=== PATIENT | female | born 1975 | race Caucasian/White ===

== ENCOUNTER 2017-11-20 21:47 | Emergency (ER) | payer OTHER ==
--- NOTE | 2017-11-20 21:55 | UC ---
Complaint Female HPI - HPI Summary HPI Summary: C/O hematuria with frequency, urgency, started today. H/O UTI's. - History Of Current Complaint Stated Complaint: HEMATURIA Time Seen by Provider: 11/20/17 21:49 Hx Obtained From: Patient Hx Last Menstrual Period: 04/04/13 ?: No Onset/Duration: Sudden Onset, Still Present, Worse Since - since onset Timing: Constant Severity Initially: Mild Severity Currently: Moderate Character: Burning Aggravating Factor(s): Urination Alleviating Factor(s): Nothing Associated Signs And Symptoms: Negative: Fever, Back Pain Related Hx: Similar Episode/Dx as: - UTI - Allergies/Home Medications Allergies/Adverse Reactions: Allergies Allergy/AdvReac Type Severity Reaction Status Date / Time latex Allergy Intermediate Rash Verified 11/20/17 21:52 clindamycin Allergy Rash Verified 11/20/17 22:02 Penicillins Allergy Rash Verified 11/20/17 22:02 Home Medications: Home Medications Cetirizine* [ZyrTEC 10 MG TAB*] 10 mg PO DAILY 11/20/17 [History Confirmed 11/20] Cranberry Fruit Concentrate [Azo Cranberry] 250 mg PO DAILY 11/20/17 [History Confirmed 11/20/17] PMH/Surg Hx/FS Hx/Imm Hx GI/ History: Gastroesophageal Reflux Psychological History: Anxiety, Depression - Surgical History Surgical History: Yes Surgery Procedure, Year, and Place: c-sections x2 - Family History Known Family History: Positive: Cardiac Disease, Hypertension, Diabetes - Social History Occupation: Employed Full-time Lives: With Family Substance Use Type: None Smoking Status (MU): Light Every Day Tobacco Smoker Cessation Counseling: Patient Advised to Stop Review of Systems Genitourinary: Hematuria, Frequency, Urgency Is Patient Immunocompromised?: No All Other Systems Reviewed And Are Negative: Yes Physical Exam Triage Information Reviewed: Yes Appearance: Well-Appearing, No Pain Distress, Well-Nourished Vital Signs Reviewed: Yes Eyes: Positive: Conjunctiva Clear ENT: Positive: Pharynx normal, TMs normal Neck exam: Normal Respiratory Exam: Normal Cardiovascular Exam: Normal Abdomen Description: Negative: Nontender - suprapubic tenderness, CVA Tenderness (R), CVA Tenderness (L), McBurney's Point Tenderness, Peritoneal Signs Musculoskeletal Exam: Normal Neurological Exam: Normal Psychological Exam: Normal Skin Exam: Normal Complaint Female Dx - Differential Dx/Diagnosis Differential Diagnosis/HQI/PQRI: Appendicitis, Ureteral Stone, Urinary Tract Infection Provider Diagnoses: Acute hemorrhagic cystitis Discharge - Sign-Out/Discharge Documenting (check all that apply): Discharge/Admit/Transfer - Discharge Plan Condition: Stable Disposition: HOME Prescriptions: Phenazopyridine 200 mg (NF) [Pyridium 200 MG tab *] 200 mg PO TID PRN #6 tab PRN Reason: UTI symptoms Sulfamethox/Trimethoprim DS* [Bactrim DS 800/160 TAB*] 1 tab PO BID #10 tab Patient Education Materials: Urinary Tract Infection in Women (ED), Phenazopyridine (By mouth), Sulfamethoxazole/Trimethoprim (By mouth) - Billing Disposition and Condition Condition: STABLE Disposition: Home
[2017-11-20 21:59] VITALS: BP 119/80
[2017-11-20] MEDS ORDERED: Sulfamethox/Trimethoprim DS 800/160* TAB PO ONE (22:00)
--- NOTE | 2017-11-24 08:38 | UC ---
- Progress Note Progress Note: urine culture + Ecoli resistance to Bactrim please have the pt. stop Bactrim , will ERx Cipro 500 mg bid x 5 days Discharge - Sign-Out/Discharge Documenting (check all that apply): Discharge/Admit/Transfer - Discharge Plan Condition: Stable Disposition: HOME Prescriptions: Ciprofloxacin TAB* [Cipro 500 MG TAB*] 500 mg PO BID #10 tab Phenazopyridine 200 mg (NF) [Pyridium 200 MG tab *] 200 mg PO TID PRN #6 tab PRN Reason: UTI symptoms Sulfamethox/Trimethoprim DS* [Bactrim DS 800/160 TAB*] 1 tab PO BID #10 tab Patient Education Materials: Sulfamethoxazole/Trimethoprim (By mouth), Phenazopyridine (By mouth), Urinary Tract Infection in Women (ED) Referrals: Janette Moreira MD [Primary Care Provider] - - Billing Disposition and Condition Condition: STABLE Disposition: Home
== END 2017-11-20 22:13 | disposition home or self-care (01) ==
LOC: UCCORT 21:47
DX: N30.01 Acute cystitis with hematuria (principal); Z88.0 Allergy status to penicillin; Z88.1 Allergy status to other antibiotic agents; Z91.040 Latex allergy status; F17.210 Nicotine dependence, cigarettes, uncomplicated
CPT/HCPCS: 87077; 87086; 87186; 99202; A9270-GY; G0463

== ENCOUNTER 2018-04-24 09:37 | Emergency (ER) | payer SELFPAY ==
[2018-04-24 09:54] VITALS: BP 117/83
[2018-04-24] MEDS ORDERED: Tetracaine 0.5% OPTH.SOL 4 ML* 1 DROP BTL ONE (10:20)
[2018-04-24] MEDS ORDERED: Fluorescein Sodium TOPICAL* 1 MG TEST STRIP OPHTHALMIC ONE (10:21)
--- NOTE | 2018-04-24 12:10 | UC ---
Eye Complaint HPI - HPI Summary HPI Summary: Pt presents to with irriation to left eye. Pt does wear contact lenses. Pt states first noted on Sat when out in [place]. Pt states has significant glare from snow. Pt states felt irritation with contact. Pt states she rubbed eye and felt burning pain. Pt states has had some tearing. No drainage or discharge. Pt states today eye is red and seems there is a "film" looking through. Pt with scant yellow discharge this morning. has not put contact in. Pt has foreign body sensation in lower lid. has washed eye without relief. Pt does not have an ophtho pt's medications reviewed this visit - History of Current Complaint Chief Complaint: UCEye Stated Complaint: LT EYE CONCERN Time Seen by Provider: 04/24/18 10:20 Hx Obtained From: Patient Hx Last Menstrual Period: 04/04/13 ?: No Onset/Duration: Gradual Onset Timing: Constant Severity Initially: Mild Pain Intensity: 0 Pain Scale Used: 0-10 Numeric - Allergies/Home Medications Allergies/Adverse Reactions: Allergies Allergy/AdvReac Type Severity Reaction Status Date / Time latex Allergy Intermediate Rash Verified 04/24/18 09:54 clindamycin Allergy Rash Verified 04/24/18 09:54 Penicillins Allergy Rash Verified 04/24/18 09:54 PMH/Surg Hx/FS Hx/Imm Hx Previously Healthy: Yes - Surgical History Surgical History: Yes Surgery Procedure, Year, and Place: c-sections x2, partial hysterectomy from estrogen fed breast cancer - Family History Known Family History: Positive: Cardiac Disease, Hypertension, Diabetes - Social History Occupation: Employed Full-time Lives: With Family Alcohol Use: Rare Substance Use Type: None Smoking Status (MU): Light Every Day Tobacco Smoker Review of Systems All Other Systems Reviewed And Are Negative: Yes Constitutional: Positive: Negative Eyes: Positive: Blurred Vision, Eye Redness, Other - burning Physical Exam - Summary Physical Exam Summary: Vital Signs Reviewed: Yes A+Ox3, no distress Eyes:NEVA. EOM intact and full, left eye injected, scant yellow discharge, no- photophobia, crisp fundoscopic margin, no fluorescene uptake ENT: Hearing grossly normal TM x 2 clear, mmoist, uvula midline, no exudate, no erythema Neck: Positive: Supple Respiratory: Positive: No respiratory distress, No accessory muscle use + CTA throughout no w/r Cardiovascular: RRR nl s1, s2 no m/r CBT <2 sec abd soft + BS nt/nd no guarding, no distension Musculoskeletal Exam: PENA x 4 without difficulty Strength Intact, ROM Intact Neurological: Positive: Alert, + sensation throughout Psychological: Positive: Normal Response To Family Skin: Positive: no rash, no ecchymosis Triage Information Reviewed: Yes Vital Signs: Initial Vital Signs Temp 97.7 F 04/24/18 09:48 Pulse 98 04/24/18 09:48 Resp 14 04/24/18 09:48 BP 117/83 04/24/18 09:48 Pulse Ox 100 04/24/18 09:48 Eye Complaint Course/Dx - Course Course Of Treatment: Pt present with 2 days left eye pain. pt states [place] noted [place] - snow was "bright" Pt states initially had eye pain and photophobia. Pt states then developed scant drainage and f.b sensation. Pt states feels like "film" over eyes. on exam, vss, reviewed visual acuity. Pt with scant yellow discharge. No fluorscene uptake. no fb no photophobia. recommend pt apply eat. do not wear contact lenses. cipro drops. recommend contact ophtho for f./u adn recheck - pt states understanding and agreement - will call today. Referral given. strict return precautions. pt comfortable and in agreement with plan - Differential Dx/Diagnosis Provider Diagnoses: left conjunctivitis Discharge - Sign-Out/Discharge Documenting (check all that apply): Patient Departure All imaging exams completed and their final reports reviewed: No Studies - Discharge Plan Condition: Stable Disposition: HOME Prescriptions: Ofloxacin 0.3% (Eye Drop) [Ocuflox OPTH 0.3% (Eye Drop)] 2 drop LEFT EYE Q6HR # 1 btl Patient Education Materials: Corneal Abrasion (ED) Referrals: Siva Vidalse MD [Medical Doctor] - Brenda Andrews MD [Primary Care Provider] - Kvng SHIN,Traci [Medical Doctor] - Bertin Dailey MD [Medical Doctor] - Additional Instructions: - apply eye drops to affected eye every 6 hours - Okay to alternate ibuprofen (advil, motrin) and tylenol every 3 hour as needed - okay to apply warm, moist soaks to your eye - it is recommended you schedule a follow-up appointment with an obstetrics specialist. contact the doctors provided to schedule a recheck this week - if yo have increased pain, drainage, or any other concerns it is recommended you go to the emergency department for further evaluation and treatment - Billing Disposition and Condition Condition: STABLE Disposition: Home - Attestation Statements Provider Attestation: I was available for consult. This patient was seen by the ROSITA. The patient was not presented to, seen by, or examined by me. -Lexi
== END 2018-04-24 10:55 | disposition home or self-care (01) ==
LOC: UCCORT 09:37
DX: H10.9 Unspecified conjunctivitis (principal); Z88.0 Allergy status to penicillin; Z88.1 Allergy status to other antibiotic agents
CPT/HCPCS: 99212; A9270-GY; G0463

== ENCOUNTER 2018-05-05 15:38 | Emergency (ER) | payer BC, OTHER ==
[2018-05-05 16:21] VITALS: BP 122/77
--- NOTE | 2018-05-05 16:55 | UC ---
UC General HPI - HPI Summary HPI Summary: per cable television line technician "Stomach pain for 2 weeks; pt had stopped Protonix one month ago. Nausea started 3 days ago; diarrhea once 3 eves ago; phlegm type vomiting; fatique. No nausea now. Stomach pain continues. Thoracic-upper lumbar spine pain." -she only had vomiting and diarrhea x 1, 2 days ago. she spent all day in bed sleeping yesterday. she stopped the protonix bc she didnt have insurance which she just got again. gerd sx are minimal -also now w/ sinus pain/mild congestion x 1 day. tends to get sinus infections and wants to check to see if she needs abx. -denies dysuria. no hematuria. no menses. urine is dark but she prado snot been drinking much fluid. - History of Current Complaint Chief Complaint: UCGU Stated Complaint: VOMITING/DIARRHEA Time Seen by Provider: 05/05/18 16:50 Hx Last Menstrual Period: yrs Pain Intensity: 3 - Allergy/Home Medications Allergies/Adverse Reactions: Allergies Allergy/AdvReac Type Severity Reaction Status Date / Time latex Allergy Intermediate Rash Verified 05/05/18 16:09 clindamycin Allergy Rash Verified 05/05/18 16:09 Penicillins Allergy Rash Verified 05/05/18 16:09 ? amoxicillin Allergy Unknown Uncoded 05/05/18 16:09 Reaction Details PMH/Surg Hx/FS Hx/Imm Hx Previously Healthy: Yes - Surgical History Surgical History: Yes Surgery Procedure, Year, and Place: c-sections x 2, partial hysterectomy from estrogen fed breast cancer - Family History Known Family History: Positive: Cardiac Disease, Hypertension, Diabetes - Social History Alcohol Use: Rare Substance Use Type: None Smoking Status (MU): Light Every Day Tobacco Smoker Review of Systems All Other Systems Reviewed And Are Negative: Yes Constitutional: Positive: Negative Skin: Positive: Negative Eyes: Positive: Negative ENT: Positive: Sinus Congestion, Sinus Pain/Tenderness Respiratory: Positive: Negative Cardiovascular: Positive: Negative Gastrointestinal: Positive: Vomiting, Diarrhea Genitourinary: Positive: Negative Motor: Positive: Negative Neurovascular: Positive: Negative Musculoskeletal: Positive: Negative Neurological: Positive: Negative Psychological: Positive: Negative Is Patient Immunocompromised?: No Physical Exam Triage Information Reviewed: Yes Appearance: Well-Appearing, No Pain Distress, Well-Nourished Vital Signs: Initial Vital Signs Temp 98.1 F 05/05/18 16:12 Pulse 89 11/30/18 16:12 Resp 16 05/05/18 16:12 BP 122/77 05/05/18 16:12 Pulse Ox 100 05/05/18 16:12 Vital Signs Reviewed: Yes Eye Exam: Normal ENT: Positive: Pharynx normal, TMs normal. Negative: Nasal congestion, TM bulging, TM dull, TM red, Sinus tenderness Neck exam: Normal Neck: Positive: Supple, Nontender, No Lymphadenopathy Respiratory: Positive: Lungs clear, Normal breath sounds, No respiratory distress, No accessory muscle use. Negative: Crackles, Rhonchi, Stridor, Wheezing Cardiovascular Exam: Normal Cardiovascular: Positive: RRR, No Murmur, Pulses Normal Abdominal Exam: Normal Abdomen Description: Positive: Nontender, Soft Bowel Sounds: Positive: Present Musculoskeletal Exam: Normal Neurological Exam: Normal Psychological Exam: Normal Course/Dx - Course Course Of Treatment: Vomiting, diarrhea and fatigue have resolved. UA shows dehydration and + 2 blood. reecommend she get rechecke din 6 days. increase water to frequent, clear urination. f/u with pcp for gerd as well. - Differential Dx - Multi-Symptom Differential Diagnoses: Urinary Tract Infection, Other - URI, sinus infection, gerd, n/v - Diagnoses Provider Diagnosis: Gastroenteritis Discharge - Sign-Out/Discharge Documenting (check all that apply): Patient Departure All imaging exams completed and their final reports reviewed: No Studies - Discharge Plan Condition: Stable Disposition: HOME Patient Education Materials: Dehydration (ED), Gastroenteritis (ED) Referrals: Brenda Andrews MD [Primary Care Provider] - 6 Days Additional Instructions: -Make sure that you have the urine rechecked for arthur small amount of blood that was seen. drink plenty of water. You will know you are re-hydrated when your urine is clear and frequent. - Billing Disposition and Condition Condition: STABLE Disposition: Home
== END 2018-05-05 17:23 | disposition home or self-care (01) ==
LOC: UCCORT 15:38
DX: K52.9 Noninfective gastroenteritis and colitis, unspecified (principal); Z88.1 Allergy status to other antibiotic agents; F17.210 Nicotine dependence, cigarettes, uncomplicated; Z88.0 Allergy status to penicillin
CPT/HCPCS: 81003; 99211; G0463

== ENCOUNTER 2019-06-10 18:15 | Emergency (ER) | payer BC, OTHER ==
--- OUTSIDE RECORDS SUMMARY | 2019-06-10 18:26 | XMS REPORT | Continuity of Care Document ---
:1975 External Reference #:[id number] Author Name Kelly Lombardi, DECLAN-BC, MEAT WASHER, Ibclc Address [address] [place] [id number] Care Team Providers Name Role Phone Rad Trujillo DO - Hematology & Care Team Information [employer] Oncology Kelly Lombardi PNP-BC MEAT WASHER, Ibclc Care Team Information [employer] [phone] - Family Problems Active Problems Provider Date Malignant neoplasm of female breast Bertin Nunez MD Onset: 05/21/2013 Gastroesophageal reflux disease Shellie Mackey FNP Onset: 05/21/2011 Single major depressive episode Shellie Mackey FNP Onset: 05/21/2011 Tobacco user Shellie Mackey FNP Onset: 05/21/2011 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 Social History Type Date Description Comments Sex Unknown Tobacco Use Start: Unknown End: Unknown Quit Smoking Status Reviewed: 05/09/19 Quit ETOH Use Denies alcohol use Tobacco Use Start: Unknown Light tobacco smoker (10 or fewer cigarettes/day) Allergies, Adverse Reactions, Alerts Active Allergies Reaction Severity Comments Date Penicillin 05/14/2013 Latex 03/02/2016 Medications Active Medications SIG Qnty Indications Ordering Date Provider Escitalopram Oxalate take 1 pill by 30tabs F33.1 Kelly Lombardi, 05/09/2019 mouth daily with PNP-BC, MEAT WASHER, 5mg Tablets 20mg tablet Ibclc Melatonin 1-2 at bedtime as 60caps F33.1 Kelly Lombardi, 05/09/2019 10mg Capsules needed PNP-BC, MEAT WASHER, Ibclc Calcium + D 2 chewables bid 120units E55.9 Judy Pulliam, 04/04/2019 MEAT WASHER [phone] Chewtabs Tab-A-Jasbir take 1 tablet by 90tabs Judy Pulliam, 04/04/2019 Tablets mouth once daily MEAT WASHER Zyrtec Allergy 1 by mouth every 90caps L20.89 Judy Pulliam, 04/04/2019 10mg day MEAT WASHER Capsules Triamcinolone apply sparingly 30gm L20.89 Janette Moreira, 04/04/2019 Acetonide twice daily on M.D. 0.5% Cream areas of arms and legs, as needed for eczema Escitalopram Oxalate 1 by mouth every 90tabs Judy Pulliam, 09/13/2017 day MEAT WASHER 20mg Tablets Pantoprazole Sodium 1 tab by mouth 90tabs Judy Pulliam, 08/10/2017 every day MEAT WASHER 20mg Tablets DR Medications Administered in Office Medication SIG Qnty Indications Ordering Provider Date Korin Jones, 03/16/2016 Injection MEAT WASHER-C Korin Jones, 03/02/2016 Injection MEAT WASHER-C Immunizations CPT Code Status Date Vaccine Lot # [id number] Given 03/11/2017 Influenza Virus Vaccine, Quadrivalent, Slit Virus, [id number] Im Use 82982 Given 04/13/2016 Hepatitis B Vaccine Adult [id number] 77063 Given 03/04/2016 Hepatitis B Vaccine Adult [id number] 18708 Given 03/04/2016 MMR Vaccine, Live, For Subcutaneous Use [id number] 08162 Given 03/02/2016 Tdap injection [id number] 05007 Given 03/02/2016 Influenza Virus Vaccine Split Virus Use For [id number] Individual 3Yr Older 79744 Given 04/20/2010 flu vaccination 75167 Given 05/07/2009 flu vaccination 18978 Given 05/07/2009 H1N1 Immuniation Adminstration 24005 Given 04/07/2009 flu vaccination Vital Signs Date Vital Result Comment 05/09/2019 8:54am BP Systolic 120 mmHg BP Diastolic 75 mmHg Body Temperature 97.8 F Heart Rate 89 /min Respiratory Rate 18 /min Height 62 inches 5'2" Weight 127.00 lb BMI (Body Mass Index) 23.2 kg/m2 BSA (Body Surface Area) 1.58 m2 [place] body weight in kilograms 50 kg O2 % BldC Oximetry 98 % 04/04/2019 1:42pm BP Systolic 122 mmHg BP Diastolic 78 mmHg Body Temperature 97.8 F Heart Rate 86 /min Respiratory Rate 16 /min Height 62.15 inches 5'2.15" Weight 122.12 lb BMI (Body Mass Index) 22.2 kg/m2 BSA (Body Surface Area) 1.55 m2 [place] body weight in kilograms 50 kg Results Test Acquired Date Facility Test Result H/L Range Note [facility] Igg & Igm 04/04/[address] Lyme AB Igg By . 1 By [place] [address] [facility] [place] [address] [phone] P93 AB Absent . P66 AB Absent . P58 AB Absent . P45 AB Absent . P41 AB Absent . P39 AB Absent . P30 AB Absent . P28 AB Absent . P23 AB Absent . P18 AB Absent . Lyme Igg WB Interpretation Negative . 2 Lyme AB Igm By [place] . P41 AB Absent . P39 AB Absent . P23 AB Absent . Lyme Igm WB Interpretation Negative . 3 Laboratory test 04/04/[address] Vitamin 31.0 30.0-100.0 4 finding [address] [facility] D,25-Hydroxy ng/[place] [address] [phone] Thyroid Stim Hormone 0.76 uIU/mL Normal 0.30-4.20 Free T4 0.76 ng/dL Normal 0.76-1.46 Ebv Acute 04/04/[address] Ebv AB Vca,Igm <36.0 U/mL 0.0- 35.9 5 Infection [address] [place] [address] [phone] Ebv Early Antigen AB, IgG <9.0 U/mL 0.0-8.9 6 Ebv AB Vca,Igg >600.0 U/mL High 0.0-17.9 7 Ebv Nuclear Antigen AB, Igg 23.7 U/mL High 0.0-17.9 8 Ebv Interpretation . 9 CBC W/Automated 04/04/[address] White Blood 6.9 K/uL Normal 3.1-10.7 Diff [address] [facility] [place] [address] [phone] Red Blood Count 4.56 M/uL Normal 3.90-5.40 Hemoglobin 14.1 gm/dL Normal 11.6-15.8 Hematocrit 42.2 % Normal 36.0-46.1 Mean Cell Volume 92.5 fl Normal 80.9-99.0 Mean Corpuscular HGB 30.9 pg Normal 25.9-32.7 Mean Corpuscular HGB Conc 33.4 g/dL Normal 30.8-34.3 Platelet Count 252 K/uL Normal 155-360 Red Cell Distri Width SD 42.3 fl Normal 36-47 Red Cell Distri Width %CV 12.3 % Normal 11.7-14.4 Mean Platelet Volume 10.5 fl Normal 8.9-12.4 Neut% 61.5 % Normal 40.4-72.8 Lymph % 30.1 % Normal 20.0-42.0 [place] % 6.5 % Normal 4.3-13.2 Eo% 0.9 % Normal 0.0-6.6 Bas% 0.7 % Normal 0.0-1.1 Immature Grans 0.3 % Normal 0.0-5.0 NRBC % 0.0 /100WBC < 10/ 100 WBC Neut# 4.25 K/uL Normal 1.8-7.0 Lymph # 2.08 K/uL Normal 1.0-4.0 [place] # 0.45 K/uL Normal 0.3-0.9 Eos # 0.06 K/uL Normal 0.0-0.5 Baso # 0.05 K/uL Normal 0.0-0.1 Immature Grans Absolute 0.02 K/uL NRBC # 0.00 K/uL Comprehensive 04/04/[address] Glucose 81 mg/dL Normal 74-106 Metabolic Panel [address] [place] [address] [phone] BUN 9 mg/dL Normal 7-18 Creatinine 0.7 mg/dL Normal 0.6-1.3 Glom Filtration Rate, Estimate >60 mL/min >60 If >60 mL/min >60 10 BUN/Creat 12.8 ratio Sodium 137 mmol/L Normal 136-145 Potassium 3.8 mmol/L Normal 3.5-5.1 Chloride 105 mmol/L Normal 98-107 Carbon Dioxide 29 mmol/L Normal 21-32 Anion Gap 3 mEq/L Low 8-16 Calcium 9.5 mg/dL Normal 8.5-10.1 Total Protein 8.3 g/dL High 6.4-8.2 Albumin 4.5 g/dL Normal 3.4-5.0 Globulin 3.8 g/dL Normal 1.9-4.3 Alb/Glob 1.2 ratio Bilirubin,Total 0.4 mg/dL Normal 0.2-1.0 Sgot/Ast 33 U/L Normal 15-37 SGPT/Alt 36 U/L Normal 12-78 Alkaline Phosphatase 66 U/L Normal 45-117 1 R53.83 E55.9 2 Positive: 5 of the following Borrelia-specific bands: 18,23,28,30,39,41,45,58, 66, and 93. Negative: No bands or banding patterns which do not meet positive criteria. 3 Note: An equivocal or positive EIA result followed by a negative Line Blot result is considered NEGATIVE. An equivocal or positive EIA result followed by a positive Line Blot is considered POSITIVE by the CDC. Positive: 2 of the following bands: 23,39 or 41 Negative: No bands or banding patterns which do not meet positive criteria. Criteria for positivity are those recommended by CDC/ASTPHLD. p23=Osp C, l68=ktdhskexq Note: Sera from individuals with the following may cross react in the Lyme Line Blot assays: other spirochetal diseases (periodontal disease, leptospirosis, relapsing fever, yaws, and pinta); connective autoimmune (Rheumatoid Arthritis and Systemic Lupus Erythematosus and also individuals with Antinuclear Antibody); other infections ([place] Spotted Fever; Ken-Shaikh Virus, and Cytomegalovirus). 4 Vitamin D deficiency has been defined by the [place] of [employer] and an Endocrine Society practice guideline as a level of serum 25-OH vitamin D less than 20 ng/mL (1,2). The Endocrine Society went on to further define vitamin D insufficiency as a level between 21 and 29 ng/mL (2). 1. IOM ([place] [employer]). 2010. Dietary reference intakes for calcium and D. [place]: The National Academies Press. 2. Lolis MF, Kim NC, Daisy QURESHI, et al. Evaluation, treatment, and prevention of vitamin D deficiency: an Endocrine Society clinical practice guideline. JCEM. 2010; 96(7):1911-30. Performed at: RN - [facility] [address] [id number] [employer] Gun Per[employer]ator Operator: Lula Dubon MD, Phone: [phone] 5 Negative <36.0 Equivocal 36.0 - 43.9 Positive >43.9 6 Negative < 9.0 Equivocal 9.0 - 10.9 Positive >10.9 7 Negative <18.0 Equivocal 18.0 - 21.9 Positive >21.9 8 Negative <18.0 Equivocal 18.0 - 21.9 Positive >21.9 9 EBV Interpretation Chart Interpretation EBV-IgM EA(D)-IgG VCA-IgG EBNA-IgG EBV Seronegative - - - - Early Phase + - - - Acute Primary + +or- + - Infection Convalescence/Past - +or- + + Infection Reactivated +or- +or- + + Infection + Antibody Present - Antibody Absent Performed at: RN - [facility] [address] [id number] [employer] Operator: Lula Dubon MD, Phone: [phone] 10 Note: Persistent reduction for 3 months or more in an eGFR <60 mL/min/1.73 m2 defines CKD. Patients with eGFR values >/=60 mL/min/1.73 m2 may also have CKD if evidence of persistent proteinuria is present. The original MDRD equation for estimated GFR is not valid for patients less than 18 years of age. Additional information may be found at www.kdoqi.org. Procedures Date Code Description Status 04/04/2019 89570 Brief Emotional/Behav Assessment W/ Scoring Doc Per Completed Standard Inst 12/12/2013 501435649 Bone Mineral Density Test Completed 05/31/2013 [id number] Mammogram Completed 05/11/2013 [id number] Mammogram Completed Medical Devices Description No Information Available Encounters Type Date Location Provider Dx Diagnosis Office Visit 05/09/2019 Family Medicine Kelly Lombardi, F33.1 Major depressive 9:00a Micheal BLACKBURN PNP-BC, MEAT WASHER, disorder, Ibclc recurrent, moderate Office Visit 04/04/2019 Family Medicine Judy Pulliam FNP R53.83 Other fatigue 1:30p Micheal BLACKBURN E55.9 Vitamin D deficiency, unspecified F33.1 Major depressive disorder, recurrent, moderate Assessments Date Code Description Provider 05/09/2019 F33.1 Major depressive disorder, Kelly Lombardi PNP-BC, MEAT WASHER, recurrent, moderate Ibclc 04/04/2019 R53.83 Other fatigue Judy Pulliam FNP 04/04/2019 E55.9 Vitamin D deficiency, unspecified Judy Pulliam FNP 04/04/2019 F33.1 Major depressive disorder, Judy Pulliam FNP recurrent, moderate Plan of Treatment Future Appointment(s):06/13/2019 8:45 am - Kelly Lombardi PNP-BC, MEAT WASHER, Ibclc at [facility] RD04/04/2019 - Judy Pulliam FNPR53.83 Other fatigueComments:Many vague symptoms including worsening depression, excessive fatigue, weakness, daily headaches, worsening acid reflux, ankle joint pain. Certainly could be r/t depression which has been untreated forabout a year now, but some DDx also include: lyme disease, hypothyroidism, anemia, vitamin d deficiency, mono (although doubtful as denies current ST/lymphadenopathy)Would like to check some labs and if things are normal we may want to try a different depression medication.Follow up:1 mo f/u with PCPE55.9 Vitamin D deficiency, unspecifiedNew Medication:Calcium + D 500-1000-40 mg-Unt-mcg - 2 chewables bidComments:I've renewed your chewable calcium with vitamin D. Please get back to taking this regularly.F33.1 Major depressive disorder, recurrent, moderateComments:Continue on lexapro for now. I renewed it and all your other meds you used to take.You should f/u with in about a month.You also need to reschedule your follow-ups with oncology and get back to seeing them regularly. Functional Status Functional Condition Comment Date Status Independent with all ADL's Active Mental Status Description No Information Available Referrals Description No Information Available
[2019-06-10 18:38] VITALS: BP 115/77
[2019-06-10] MEDS ORDERED: Ibuprofen TAB* 600 MG PO ONE (18:52)
--- NOTE | 2019-06-10 18:55 | UC ---
Throat Pain/Nasal Faisal HPI - HPI Summary HPI Summary: 43-year-old woman comes in with chief complaint of 3 days of upper respiratory tract infection symptoms. Set a sore throat some rhinorrhea. Does have a cough no shortness of breath. She is a smoker. No history of asthma. She does have low back pain that goes down her legs it time which she reports happens when she gets strep throat. She also does have body aches. Patient does have decreased appetite. Denies any burning with urination are UTI symptoms. Normal bowel movements. - History of Current Complaint Chief Complaint: UCGeneralIllness Stated Complaint: SORE THROAT/ ? FLU SYMPTOMS Time Seen by Provider: 06/10/19 18:46 Hx Last Menstrual Period: yrs Pain Intensity: 6 - Allergies/Home Medications Allergies/Adverse Reactions: Allergies Allergy/AdvReac Type Severity Reaction Status Date / Time latex Allergy Intermediate Rash Verified 06/10/19 18:39 clindamycin Allergy Rash Verified 06/10/19 18:39 Penicillins Allergy Rash Verified 06/10/19 18:39 ? amoxicillin Allergy Unknown Uncoded 06/10/19 18:39 Reaction Details Home Medications: Home Medications Cetirizine* [ZyrTEC 10 MG TAB*] 10 mg PO DAILY 06/10/19 [History Confirmed 06/10] Escitalopram Oxalate [Lexapro] 25 mg PO DAILY 06/10/19 [History Confirmed ] Pantoprazole TAB (NF) [Protonix TAB (NF)] 40 mg PO DAILY 06/10/19 [History Confirmed 06/10/19] PMH/Surg Hx/FS Hx/Imm Hx Previously Healthy: Yes GI/ History: Gastroesophageal Reflux - Surgical History Surgical History: Yes Surgery Procedure, Year, and Place: c-sections x 2, partial hysterectomy from estrogen fed breast cancer - Family History Known Family History: Positive: Cardiac Disease, Hypertension, Diabetes - Social History Alcohol Use: Rare Substance Use Type: None Smoking Status (MU): Light Every Day Tobacco Smoker Review of Systems All Other Systems Reviewed And Are Negative: Yes Constitutional: Positive: Other - see hpi Skin: Positive: Negative Eyes: Positive: Negative ENT: Positive: Sore Throat, Nasal Discharge, Sinus Congestion Respiratory: Positive: Negative Cardiovascular: Positive: Negative Gastrointestinal: Positive: Negative Motor: Positive: Negative Neurovascular: Positive: Negative Musculoskeletal: Positive: Myalgia Neurological: Positive: Negative Psychological: Positive: Negative Is Patient Immunocompromised?: No Physical Exam Triage Information Reviewed: Yes Appearance: No Pain Distress, Well-Nourished, Ill-Appearing - mild Vital Signs: Initial Vital Signs Temp 98.4 F 06/10/19 18:33 Pulse 75 06/10/19 18:33 Resp 16 06/10/19 18:33 BP 115/77 06/10/19 18:33 Pulse Ox 100 06/10/19 18:33 Vital Signs Reviewed: Yes Eye Exam: Normal Eyes: Positive: Conjunctiva Clear ENT: Positive: Pharyngeal erythema, Nasal congestion, TMs normal Neck: Positive: Supple Respiratory: Positive: Lungs clear, Normal breath sounds, No respiratory distress Cardiovascular: Positive: RRR Musculoskeletal: Positive: Strength Intact, ROM Intact Neurological: Positive: Alert, Muscle Tone Normal Psychological: Positive: Normal Response To Family, Age Appropriate Behavior Skin Exam: Normal Throat Pain/Nasal Course/Dx - Course Course Of Treatment: DISCUSSED VIRAL VERSES BACTERIAL INFECTIONS AND THE ROLE OF ANTIBIOTICS. THE PATIENT PREFERS TO BE ON ANTIBIOTICS AT THIS TIME. Patient denies any urinary tract infection symptoms. Patient continue symptomatic treatment and get reevaluated if worse or any questions or concerns. - Differential Dx/Diagnosis Provider Diagnosis: Pharyngitis, Upper respiratory infection Discharge ED - Sign-Out/Discharge Documenting (check all that apply): Patient Departure All imaging exams completed and their final reports reviewed: No Studies - Discharge Plan Condition: Stable Disposition: HOME Prescriptions: Azithromycin 250 mg PO DAILY #4 tablet Patient Education Materials: Pharyngitis (ED), Upper Respiratory Infection (ED) Forms: *Work Release Referrals: Kelly Lombardi NP [Primary Care Provider] - Additional Instructions: FOLLOW UP WITH YOUR DOCTOR IF NOT COMPLETELY IMPROVED. GET REEVALUATED SOONER IF NOT IMPROVING OR WORSE OR ANY QUESTIONS OR CONCERNS. - Billing Disposition and Condition Condition: STABLE Disposition: Home
[2019-06-10 19:01] LABS: Influenza A Molecular NEGATIVE (Negative); Influenza B Molecular NEGATIVE (Negative)
[2019-06-10] MEDS ORDERED: Azithromycin TAB* 250 MG PO ONE (19:04)
== END 2019-06-10 19:20 | disposition home or self-care (01) ==
LOC: UCCORT 18:15
DX: J06.9 Acute upper respiratory infection, unspecified (principal); J02.9 Acute pharyngitis, unspecified; F17.290 Nicotine dependence, other tobacco product, uncomplicated; Z91.040 Latex allergy status; Z88.0 Allergy status to penicillin; Z88.1 Allergy status to other antibiotic agents
CPT/HCPCS: 87651; 99212; A9270-GY; G0463